=== PATIENT | female | born 1985 | race Caucasian/White ===

== ENCOUNTER 2019-04-26 14:54 | Emergency (ER) | payer OTHER ==
[~2019-04-26] VITALS: Ht 162.6 cm; Wt 68.0 kg
[2019-04-26] MEDS ORDERED: PROZAC10 M1 PO (15:05)
[2019-04-26] MEDS ORDERED: DOXYCYCLINE 10100 M2 PO (15:55)
[2019-04-26] MEDS ORDERED: HYDROCODON-ACE1 EAC7 PO (15:55)
[2019-04-26 16:03] VITALS: BP 92/56
== END 2019-04-26 16:04 | disposition home or self-care (01) ==
LOC: M.ERS 14:54
DX: S61.511A Laceration without foreign body of right wrist, initial encounter (principal); Z88.0 Allergy status to penicillin; Z98.51 Tubal ligation status; W54.0XXA Bitten by dog, initial encounter; Y93.89 Activity, other specified; Y92.89 Other specified places as the place of occurrence of the external cause; Y99.8 Other external cause status